=== PATIENT | female | born 1950 | race Two or more races ===

== ENCOUNTER 2018-05-06 05:15 | Day surgery (SDC) | payer OTHER ==
[~2018-05-06 05:15] MED LIST: CORDARONE PO; LEVO-T25 MCG PO; LOSARTAN POTASS50 MG PO; LOVENOX30 MG/0.3; METOPROLOL SUCC25 MG PO; NORVASC5 MG PO; SIMVASTATIN10 MG PO; WARFARIN SODIUM3 MG PO
[2018-05-06] MEDS ORDERED: ULTRACET PO (09:47)
== END 2018-05-06 11:30 | disposition home or self-care (01) ==
LOC: CIR.AMB 05:15
DX: D23.5 Other benign neoplasm of skin of trunk (principal); L72.0 Epidermal cyst

== ENCOUNTER 2021-07-10 11:27 | Outpatient (CLI) | payer OTHER ==
[~2021-07-10 11:27] MED LIST changes: +ULTRACET PO
== END 2021-07-10 11:32 | disposition home or self-care (01) ==
LOC: RAD 11:27
DX: N81.6 Rectocele (principal)